=== PATIENT | male | born 1965 | race Caucasian/White ===

== ENCOUNTER 2018-11-13 11:23 | Emergency (ER) | payer OTHER ==
[~2018-11-13] VITALS: Ht 175.3 cm; Wt 122.5 kg
[2018-11-13 11:44] LABS: PLATELET COUNT 275 x10^3mcL (130-400); RED CELL DISTRIBUTION WIDTH 12.6 % (11.5-14.5)
[2018-11-13 12:00] LABS: CARBON DIOXIDE 20.4 mmol/L (21-32); CHLORIDE SERUM 102 mmol/L (98-107); CREATININE SERUM 1.1 mg/dL (0.7-1.3); GFR1 > 60 mL/min; GLUCOSE SERUM 161 mg/dL (74-106); POTASSIUM SERUM 3.9 mmol/L (3.5-5.1); SODIUM SERUM 137 mmol/L (136-145)
[2018-11-13 12:05] LABS: ALBUMIN 3.9 g/dL (3.4-5.0); ALKALINE PHOSPHATASE 106 U/L (46-116); AST/SGOT 25 U/L (15-37); BILIRUBIN TOTAL 0.9 mg/dL (0.20-1.00)
[2018-11-13 12:06] LABS: TOTAL PROTEIN, SERUM 8.4 g/dL (6.4-8.2)
[2018-11-13 12:18] LABS: ALT/SGPT 36 U/L (16-63)
[2018-11-13 12:49] LABS: CHOLESTEROL/HDL RATIO 6.1
[2018-11-13 15:30] VITALS: BP 160/100
== END 2018-11-13 15:41 | disposition short-term general hospital (02) ==
LOC: ED 11:23
PROVIDERS: Emergency Medicine
DX: I21.4 Non-ST elevation (NSTEMI) myocardial infarction (principal); E78.00 Pure hypercholesterolemia, unspecified
CPT/HCPCS: 83880; J1644; J2270; J2405; J3490; Q0092